=== PATIENT | female | born 1990 | race Caucasian/White ===

== ENCOUNTER 2021-10-26 00:44 | Outpatient (CLI) | payer OTHER | END 2021-10-26 00:45 | disposition EMS.NT | LOC: EMS 00:44 | DX: S09.92XA Unspecified injury of nose, initial encounter (principal); Y04.2XXA Assault by strike against or bumped into by another person, initial encounter; Y92.481 Parking lot as the place of occurrence of the external cause ==

== ENCOUNTER 2021-10-26 09:50 | Emergency (ER) | payer OTHER ==
--- NOTE | 2021-10-26 10:26 | XRAY Report ---
PROCEDURE: Knee 4 View LT INDICATIONS: Trauma TECHNIQUE: 4 views of the left knee(s) were acquired. COMPARISON: None. FINDINGS: Bones: No fractures or dislocations. No suspicious bony lesions. Soft tissues: No joint effusion. No suspicious soft tissue calcifications. IMPRESSION: No evidence acute bony abnormality of the left knee. If clinical suspicion and/or symptoms persist, further assessment with repeat plain films or advanced imaging (e.g., CT, MRI, or bone scan) may be helpful for further assessment. Reviewed by: Remington Bills MD on 10/26/2021 9:25 AM [facility] Approved by: Remington Bills MD on 10/26/2021 9:25 AM [facility] Station ID: [id number]
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
[2021-10-26 11:21] VITALS: BP 144/89
== END 2021-10-26 11:19 | disposition home or self-care (01) ==
LOC: ED 09:50
DX: S86.912A Strain of unspecified muscle(s) and tendon(s) at lower leg level, left leg, initial encounter (principal); X58.XXXA Exposure to other specified factors, initial encounter; Y93.89 Activity, other specified
CPT/HCPCS: 99282; 99283

== ENCOUNTER 2024-02-04 13:35 | Outpatient (CLI) | payer OTHER ==
--- NOTE | 2024-02-04 14:51 | XRAY Report ---
PROCEDURE: Foot 1-2V LT INDICATIONS: LEFT FOOT SPRAIN TECHNIQUE: 2 views of the foot were acquired. COMPARISON: None. FINDINGS: Bones: Suspected fracture at the base of the fifth metatarsal, seen on lateral view only. Soft tissues: No tibiotalar joint effusion. Achilles tendon appears normal. IMPRESSION: Suspected fracture at the base of the fifth metatarsal. Correlate with point tenderness. Reviewed by: David Beverly MD on 02/04/2024 2:49 PM PDT Approved by: David Beverly MD on 02/04/2024 2:49 PM PDT Station ID: [id number]
== END 2024-02-04 13:36 | disposition home or self-care (01) ==
LOC: DI 13:35
PROVIDERS: ATTEND Nurse Practitioner
DX: S93.692A Other sprain of left foot, initial encounter (principal)

== ENCOUNTER 2024-02-22 08:35 | Outpatient (CLI) | payer OTHER ==
--- NOTE | 2024-02-22 14:46 | XRAY Report ---
PROCEDURE: Foot 3+V LT (Weight Bearing) INDICATIONS: FRACTURE OF 5TH METATARSAL BONE, LEFT FOOT TECHNIQUE: 3 views of the foot were acquired. COMPARISON: 02/04/2024. FINDINGS: Bones: Again noted is comminuted fracture through the lateral aspect of fifth metatarsal base is seen with fracture line extending to fifth TMT joint space. Minimal proximal and lateral displacement at fracture site is seen. No other fracture or dislocation. No suspicious bony lesions. Soft tissues: No tibiotalar joint effusion. Achilles tendon appears normal. IMPRESSION: Minimally displaced and comminuted fracture involving lateral aspect of fifth metatarsal base. Reviewed by: Seth Krueger MD on 02/22/2024 2:45 PM PDT Approved by: Seth Krueger MD on 02/22/2024 2:45 PM PDT Station ID: [id number]
== END 2024-02-22 08:36 | disposition home or self-care (01) ==
LOC: DI 08:35
PROVIDERS: ATTEND Physician Assistant Surgical
DX: S92.352D Displaced fracture of fifth metatarsal bone, left foot, subsequent encounter for fracture with routine healing (principal)

== ENCOUNTER 2024-03-23 07:57 | Outpatient (CLI) | payer OTHER ==
--- NOTE | 2024-03-23 11:38 | XRAY Report ---
PROCEDURE: Foot 3+V LT INDICATIONS: NONDISPLACED FRACTURE OF FIFTH METATARSAL BONE TECHNIQUE: 3 views of the foot were acquired. COMPARISON: Left foot radiograph on February 22, 2024. FINDINGS: Bones: Interval callus formation of minimally displaced, comminuted fracture at the lateral base of t he fifth metatarsal. Fracture plane is less conspicuous. Stable alignment. No suspicious bony lesions . Soft tissues: No tibiotalar joint effusion. Achilles tendon appears normal. IMPRESSION: Interval osseous healing of minimally displaced fracture at the lateral base of the fifth metatarsal. Stable alignment. Reviewed by: Nathaly Lynch MD on 03/23/2024 11:37 AM PDT Approved by: Nathaly Lynch MD on 03/23/2024 11:37 AM PDT Station ID: [id number]
== END 2024-03-23 07:58 | disposition home or self-care (01) ==
LOC: DI 07:57
PROVIDERS: ATTEND Orthopaedic Surgery
DX: S92.355D Nondisplaced fracture of fifth metatarsal bone, left foot, subsequent encounter for fracture with routine healing (principal)